=== PATIENT | male | born 1950 | race Caucasian/White ===

== ENCOUNTER 2022-07-16 09:42 | Inpatient (IN) | payer OTHER, MEDICARE, SELFPAY ==
--- NOTE | ~2022-07-16 | US_ITS ---
EXAMINATION: US VENOUS ULTRASOUND WITH DOPPLER LOWER EXTREMITY, BILATERAL CLINICAL INFORMATION: Shortness of breath, pain COMPARISON: None TECHNIQUE: Ultrasound of the deep veins is performed from the hip to the calf with compression sonography and color and pulse Doppler assessment. Spectral analysis with color-flow imaging is performed. FINDINGS: RIGHT: There is normal venous compression and respiratory variation and augmented flow. The visualized common femoral vein, superficial femoral vein, profunda femoral vein, popliteal vein, and the trifurcation region shows no evidence of deep venous thrombosis. There is no significant popliteal fossa cyst. LEFT: There is normal venous compression and respiratory variation and augmented flow. The visualized common femoral vein, superficial femoral vein, profunda femoral vein, popliteal vein, and the trifurcation region shows no evidence of deep venous thrombosis. There is no significant popliteal fossa cyst. If the patient's symptoms persist, followup ultrasound in 5 days 7 days might be of value to exclude proximal propagation from a non-visualized calf vein. US/US venous duplex LE BI IMPRESSION: No DVT demonstrated in the bilateral lower extremities.
--- NOTE | ~2022-07-16 | CT_ITS ---
EXAMINATION: CT ANGIOGRAM OF THE CHEST WITH AND WITHOUT CONTRAST (CT PULMONARY ANGIOGRAM FOR PE) CLINICAL INFORMATION: Reason for Exam hx of cancer and hip surgery c sudden onset sob COMPARISON: None TECHNIQUE: Prior to contrast administration, noncontrast localization images were obtained. Subsequently, multidetector volumetric imaging was performed from the thoracic inlet to below the diaphragms following the administration of 65 mL Omnipaque 350 intravenous contrast. No contrast reaction reported Sagittal, coronal, and MIP oblique sagittal reformatted images were obtained on the CT workstation, uploaded to PACS, and reviewed. This CT examination was performed using dose optimization techniques as appropriate, variously including the following: *Automated exposure control *Adjustment of mA and/or kV according to patient size (this includes techniques or standardized protocols for targeted exams where dose is matched to indication/reason for exam; i.e. extremities or head) *Use of iterative reconstruction technique Total exam dose-length product 515 mGy-cm FINDINGS: QUALITY OF STUDY/CONTRAST BOLUS: Satisfactory. PULMONARY ARTERIES: Exam is limited due to respiratory motion artifact. There is question of small subsegmental right lower lobe left upper lobe and left lower lobe pulmonary emboli. The pulmonary arteries are enlarged, main pulmonary artery measuring 4.1 cm. THORACIC AORTA: No aneurysm or dissection. LUNG: There is a 4 mm left upper lobe nodule axial image 208 series 7. PLEURA: There are moderate bilateral pleural effusions. MEDIASTINUM: Normal heart size. No pericardial effusion. No hilar or mediastinal lymphadenopathy. No evidence of septal bowing or right heart strain. CHEST WALL/AXILLA: No axillary or internal mammary lymphadenopathy. OSSEOUS STRUCTURES: There is a moderate lower thoracic vertebral body compression fracture, probably the T10 vertebral body. This appears heterogeneous in attenuation questionable for pathologic fracture appears recent. There are old left lateral rib fractures.. There are old left rib fractures. UPPER ABDOMEN: There are mild cirrhotic changes of the liver. There is question of large low-attenuation lesion in the right lobe of the liver versus artifact. There is a small subcentimeter low-attenuation lesion high in the dome of the liver axial image 39 series 5. There may be periportal lymphadenopathy. There is a small amount of ascites. The spleen is slightly enlarged. No reflux of contrast into the hepatic veins to suggest elevated right heart pressures. There is subcutaneous edema in the right lateral abdominal wall. CT/CT angio chest PE protocol IMPRESSION: Limited exam due to respiratory motion artifact. No large or central pulmonary embolism. Question small subsegmental bilateral lower lobe and left upper lobe pulmonary emboli. Enlarged pulmonary arteries. Moderate-sized bilateral pleural effusions. 4 mm left upper lobe pulmonary nodule. Moderate T10 vertebral body compression fracture, question representing a pathologic fracture. Multiple abdominal findings as described above. VTE: positive Findings were communicated to Kimberli Bonilla by telephone on 07/16/2022 at 1213 hours
--- NOTE | 2022-07-16 09:59 | ECG_ITS ---
Test Reason : SOB Blood Pressure : / mmHG Vent. Rate : 088 BPM Atrial Rate : 088 BPM P-R Int : 242 ms QRS Dur : 098 ms QT Int : 388 ms P-R-T Axes : 002 -33 064 degrees QTc Int : 469 ms Sinus rhythm with 1st degree A-V block Left axis deviation Abnormal ECG No previous ECGs available Referred By: Kimberli Bonilla Electronically Signed By:EVELYN MCCARTHY
[2022-07-16 10:11] VITALS: BP 109/51; BP 94/63; PULSE 120; PULSE 69; RESP 18; TEMP 37.1; O2SAT 97; BMI 29.8
--- NOTE | 2022-07-16 10:33 | ED_ITS ---
HPI - SOB/Dyspnea General Chief Complaint: General Medical Stated Complaint: SOB/Weakness Time Seen by Provider: 07/16/22 09:58 Source: patient Mode of arrival: ambulatory Limitations: no limitations History of Present Illness HPI Narrative: 71-year-old male who is a attempt resuscitation and intubated and ventilated although do not use Non-Invasive ventilation such as CPAP for code status who is presenting from [facility] who has a PMHx of hepatocellular carcinoma currently on Lenvima 10 mg daily, cirrhosis of liver, CHF recent ECHO on 06/14/22 was reported poor study with difficul to assess LV systolic dysfunction, HTN, SVT, type 2 diabetes, hx of elevated WBC, atrial fibrillation not on blood thinner's, thrombocytosis, herpetic rash on left buttocks, left femoral neck fracture s/p intramedullary nail 06/[address] Wade at [facility], urinary retention with Sotomayor catheter in place, current UTI/bacteremia who had a urine culture on 06/16/2022 which grew E coli and E. Faecalis resistant to Augmentin blood culture on 06/20/2022 and 06/21/2022 grew E coli s/p Zosyn 06/21-06/24, with susceptibilities intermittent to E coli in urine culture clinically improved in ED so likely be being covered appropriately and switch to levofloxacin 750 mg qd until 07/04 now s/p completed abx's presenting to the ER via EMS with complaints of sudden shortness of breath on awakening this morning. He denies any fevers, chills, dizziness, headaches, neck pain/stiffness, sore throat, cough, sputum production, chest pain, palpitations, paresthesias, nausea/vomiting, worsening abdominal pain as patient reports chronic right upper quadrant abdominal pain due to his hepatic cancer, back pain, flank pain, dysuria, hematuria, abnormal penile discharge, rashes, recent travel or sick contacts, lower extremity edema or calf tenderness or any other symptoms complaints or concerns at this time. MD elicited complaint: shortness of breath Pertinent past history: congestive heart failure and diabetes Onset (ago): minute(s) (Prior to arrival) Context: other (He woke up short of breath) Timing: constant Severity: mild Exacerbating factors: nothing Relieving factors: nothing Known history of: congestive heart failure, diabetes and other (See above) Associated symptoms: denies other symptoms Treatment prior to arrival: none Related Data Home oxygen amount: none Home Medications Medication Instructions Recorded Confirmed docusate sodium 100 mg capsule 100 mg PO BID 07/16/22 07/16/22 insulin glargine 100 unit/mL (3 25 unit subcut DAILY 07/16/22 07/16/22 mL) subcutaneous pen (Basaglar KwikPen U-100 Insulin) insulin lispro 100 unit/mL 1 sliding scale dose subcut 07/16/22 07/16/22 subcutaneous pen USEASDIRECTD ipratropium bromide 21 mcg (0.03 2 spray intranasal TID 07/16/22 07/16/22 %) nasal spray lactulose 10 gram/15 mL oral 15 ml PO DAILY 07/16/22 07/16/22 solution lenvatinib 10 mg/day (10 mg x 1) 10 mg PO DAILY 07/16/22 07/16/22 capsule (Lenvima) metoprolol tartrate 50 mg tablet 50 mg PO BID 07/16/22 07/16/22 oxycodone 5 mg tablet 5 mg PO Q6H 07/16/22 07/16/22 oxycodone 5 mg tablet 5 mg PO Q6H PRN Pain 07/16/22 07/16/22 Allergies Allergy/AdvReac Type Severity Reaction Status Date / Time No Known Allergies Allergy Verified 07/16/22 09:59 Review of Systems Review of Systems: Constitutional : No Weight loss, No Fever, No Chills, No Night Sweats, No Fatigue, No Malaise ENT/Mouth : No Hearing loss, No Ear Pain, No Nasal Congestion, No Sinus Pain, No Hoarseness, No sore throat, No Rhinorrhea, No Swallowing Difficulty Eyes: No Eye Pain, No Swelling, No Redness, No Foreign Body, No Discharge, No Vision Changes Cardiovascular : No Chest Pain, + SOB, No Dyspnea on Exertion, No Orthopnea, No Edema, No Palpitations Respiratory : No Cough, No Sputum, No Wheezing, No Smoke Exposure, No Dyspnea Gastrointestinal : No Nausea, No Vomiting, No Diarrhea, No Constipation, No abdominal Pain, No Hematochezia, No Melena Genitourinary : no irregular bleeding, No Dysuria, No Urinary Frequency, No Hematuria, No Urinary Incontinence, No Urgency, No Flank Pain, No Urinary Flow Changes, No Hesitancy Musculoskeletal : No joint pain, No Myalgias, No Joint Swelling Skin : No Skin Lesions, No rash Neuro : No Weakness, No Numbness, No Paresthesias, No Loss of Consciousness, No Dizziness, No Headache Psych : No Anxiety/Panic, No Depression, No SI/HI/AH/VH, No Social Issues, Heme/Lymph: No Bruising, No Bleeding,No Lymphadenopathy Endocrine : No Polyuria, No Polydipsia, No Temperature Intolerance Yes all other systems are reviewed and are negative [facility] Past Medical History Attestation statement: The following information was validated with the patient. Source: old records reviewed and nursing notes reviewed Medical History Hepatocellular carcinoma Hypoalbuminemia Type 2 diabetes mellitus Social History Social History Alcohol intake: never Patient Tobacco Use Status: Never used Tobacco Use of substances other than those prescribed or required for medical reasons: No Advance Directives: Yes Advance Directives Information Provided: No Advance Directives on File: No Physical Exam Vital Signs: Vital Signs: Last Vital Signs Temp 98.8 F 07/16/22 10:11 Pulse 75 07/16/22 14:14 Resp 18 07/16/22 14:14 BP 124/71 07/16/22 14:14 Pulse Ox 97 07/16/22 14:14 O2 Del Method 07/16/22 14:14 BMI result Body Mass Index 26.9 vital signs have been reviewed as normal and appeared to be correct. Blood pressure 94/63. Heart rate normal. Respiration rate normal. Temperature normal. Oxygen saturation normal. Appearance: Alert. Oriented X3. No acute distress. Head: Normal external exam. Normocephalic. Atraumatic. Eyes: PERRLA. EOMI. Conjunctiva and sclera normal. Eyelids normal. ENT: Pharynx normal. Uvula midline. Moist mucous membranes. No lesions/ulcerations or masses noted on the tongue. Normal voice. No trismus noted. No drooling noted. No muffled voice noted. Neck: Normal inspection. Neck supple. FROM. No adenopathy. Thyroid Normal. No tracheal deviation noted. No crepitus is noted. No meningeal signs. No neck mass noted. No signs of trauma noted. CVS: Normal heart rate and rhythm. Heart sound normal. Pulses normal throughout. No murmurs/rales/gallops. Respiratory: No respiratory distress. Painless inspiration. Breath sounds normal. No wheezes/rales/rhonchi noted. Chest nontender. No crepitus is noted. No accessory muscle usage noted or decreased air movement noted. No signs of trauma. Abdomen: Soft and chronic tenderness to upper quadrants. Nondistended. No guarding. No rigidity. Bowel sounds normal in all 4 quadrants. No distention noted. No organomegaly noted. No visible injury noted. No rebound tenderness. Negative Rovsing sign. Negative obturator's sign. Negative psoas sign. Negative Estes sign. Back: No CVA tenderness. Full range of motion noted. Nontender. No signs of trauma. Patient neuro intact bilaterally and distally on all 4 extremities. Patient's reflexes intact bilaterally and distally on all 4 extremities. No rashes/lesion/induration/fluctuance or signs of infection noted. Skin: Skin warm and dry. Normal skin color. Normal skin turgor. No rashes/lesions/lacerations noted. Extremities: No lower extremity edema. No calf tenderness is noted. Extremities exhibit normal range of motion and nontender. Neuro: Oriented X 3. No motor deficit. No sensory deficit. Reflexes normal. Normal steady gait. No focal neuro deficits noted. CN's II-XII intact bilaterally? Vascular: + radial pulses/+ 2 distal pedal pulses/+2 dorsalis pedis b/l. Normal cap refill. No cyanosis noted to upper extremity nails and lower extremity toes nails. 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 Wade at [facility], urinary retention with Sotomayor catheter in place, current UTI/bacteremia who had a urine culture on 06/16/2022 which grew E coli and E. Faecalis resistant to Augmentin blood culture on 06/20/2022 and 06/21/2022 grew E coli s/p Zosyn 06/21-06/24, switched to levofloxacin 750 mg qd until 07/04 now s/p completed abx's presenting to the ER via EMS with complaints of sudden shortness of breath on awakening this morning. Plan: Will obtain labs, blood cultures, lactic acid, COVID swab, EKG, venous duplex ultrasound of bilateral lower extremity, CTA of chest for PE. Provide a L of IV fluids, 1 g of Rocephin and re-evaluate. Reevaluation(s) Reevaluation #1: - patient with chronic leukocytosis of 46.5 which is similar with his labs on 07/07/2022 from the [facility] paperwork/records that he came with they report likely 2/2 necrotic tumors - patient mild baseline anemia which is improved when compared to prior with an H&H of 9.7/31.4. On 07/07/2022 his H&H was 8.8/30.0. - chronic elevated platelet count at 05:31 which is similar compared to prior - sodium 133. - random glucose 307 - alkaline phosphate 860 which is improved when compared to prior labs - BNP 1071 - total protein 5.3 - albumin 2.1 - lactic acid 3.8. - otherwise all other labs are within normal limits - patient negative for COVID - CTA of chest for PE reported limited exam due to respiratory motion artifact. No large or central pulmonary embolism. Although they are questioning small segmental bilateral lower lobes and left upper lobe pulmonary emboli. Enlarged pulmonary arteries. Moderate size bilateral pleural effusions. 4 mm left upper lobe pulmonary nodule. Moderate T10 vertebrae body compression fracture, questioning representing a pathologic fracture. Multiple abdominal findings as described. - venous duplex ultrasound of bilateral lower extremity negative for any DVTs. - I do not believe this is sepsis due to the patient's chronic leukocytosis secondary to his necrotic tumors. Also due to the patient's history of CHF and his BNP at 1071 will only give 250 mL of IV fluids due to poor LV systolic dysfunction do not want to fluid overload the patient which could cause harm. - plan will be to start on anticoagulation and admit at this time. Patient understands agrees with this plan. Time: 12:21 MDM - SOB/Dyspnea Medical Records Attestation: I reviewed the patient's medical records. Lab Data Attestation: I reviewed the patient's lab results. Result diagrams: 07/16/22 15:03 07/16/22 10:26 Labs: Lab Results 07/16/22 07/16/22 07/16/22 Range/Units 10:26 10:26 10:26 WBC 46.5 H* (4.8-10.8) X10*3/uL RBC 3.83 L (4.60-5.80) X10*6/uL Hgb 9.7 L (14.0-18.0) g/dl Hct 31.4 L (42.0-52.0) % MCV 82.0 (80.0-98.0) fL MCH 25.3 L (27.0-33.0) pg MCHC 30.9 L (31.0-36.0) g/dl RDW 15.1 (11.0-16.0) % Plt Count 531 H (160-400) X10*3/uL MPV 9.4 (9.4-12.4) fL Immature Gran % (Auto) 1.3 H (0.0-0.4) % Neut % (Auto) 89.7 H (45-73) % Lymph % (Auto) 4.0 L (20-40) % [place] % (Auto) 3.9 (2-11) % Eos % (Auto) 0.7 (0-4) % Baso % (Auto) 0.4 (0-2) % Lymph # (Auto) 1.9 (1.2-4.9) X10*3/uL [place] # (Auto) 1.8 H (0.1-1.2) X10*3/uL Eos # (Auto) 0.3 (0.0-0.4) X10*3/uL Baso # (Auto) 0.2 (0.0-0.2) X10*3/uL Abs Immat Gran (auto) 0.60 H (0.00-0.03) X10*3/uL Absolute Neuts (auto) 41.7 H (2.0-8.3) x10*3/uL Absolute Nucleated RBC 0.000 (0.0-0.012) X10*3/uL Nucleated RBC % (auto) 0.0 (0.0-0.2) /100WBC Smear Tech's Comments VERIFIED PT 14.7 H (10.0-13.1) SEC INR 1.3 H (0.9-1.1) APTT 29.5 (26.0-36.4) SEC Sodium 133 L (135-145) mmol/L Potassium 4.0 (3.3-5.1) mmol/L Chloride 99 (96-108) mmol/L Carbon Dioxide 21 L (22-29) mmol/L Anion Gap 17 (12-20) BUN 14 (9-16) mg/dL Creatinine 0.70 (0.5-1.4) mg/dL Estim Creat Clear Calc 121.8 Estimated GFR > 60 Random Glucose 307 H (60-115) mg/dL Lactic Acid (0.5-2.0) mmol/L Lactic Acid F/U @ 2Hr (0.5-2.0) mmol/L Calcium 9.2 (8.4-10.2) mg/dL Magnesium 1.9 (1.6-2.6) mg/dL Total Bilirubin 0.5 (0.0-1.0) mg/dL AST 15 (5-37) U/L ALT 16 (0-40) U/L Alkaline Phosphatase 860 H (39-117) U/L Troponin I High Sens (<3.5-35.0) ng/L B-Natriuretic Peptide (<100) pg/mL Total Protein 5.3 L (6.5-8.0) g/dL Albumin 2.1 L (3.5-5.0) g/dL Urine Color Urine Appearance Urine pH (5.0-9.0) Ur Specific [place] (1.005-1.025) Urine Protein (Neg-Trace) mg/dL Urine Glucose (UA) (Negative) mg/dL Urine Ketones (Negative) mg/dL Urine Blood (Negative) Urine Nitrite (Negative) Ur Leukocyte Esterase (Negative) Urine RBC (0-2) /HPF Urine WBC (0-5) /HPF Ur Squamous Epith Cells (0-2) /HPF Urine Bacteria (None Seen) Hyaline Casts (0-2) /LPF COVID-19 (CEDRIC) (Negative) COVID-19 Clin Com 07/16/22 07/16/22 07/16/22 Range/Units 10:26 10:26 10:26 WBC (4.8-10.8) X10*3/uL RBC (4.60-5.80) X10*6/uL Hgb (14.0-18.0) g/dl Hct (42.0-52.0) % MCV (80.0-98.0) fL MCH (27.0-33.0) pg MCHC (31.0-36.0) g/dl RDW (11.0-16.0) % Plt Count (160-400) X10*3/uL MPV (9.4-12.4) fL Immature Gran % (Auto) (0.0-0.4) % Neut % (Auto) (45-73) % Lymph % (Auto) (20-40) % [place] % (Auto) (2-11) % Eos % (Auto) (0-4) % Baso % (Auto) (0-2) % Lymph # (Auto) (1.2-4.9) X10*3/uL [place] # (Auto) (0.1-1.2) X10*3/uL Eos # (Auto) (0.0-0.4) X10*3/uL Baso # (Auto) (0.0-0.2) X10*3/uL Abs Immat Gran (auto) (0.00-0.03) X10*3/uL Absolute Neuts (auto) (2.0-8.3) x10*3/uL Absolute Nucleated RBC (0.0-0.012) X10*3/uL Nucleated RBC % (auto) (0.0-0.2) /100WBC Smear Tech's Comments PT (10.0-13.1) SEC INR (0.9-1.1) APTT (26.0-36.4) SEC Sodium (135-145) mmol/L Potassium (3.3-5.1) mmol/L Chloride (96-108) mmol/L Carbon Dioxide (22-29) mmol/L Anion Gap (12-20) BUN (9-16) mg/dL Creatinine (0.5-1.4) mg/dL Estim Creat Clear Calc Estimated GFR Random Glucose (60-115) mg/dL Lactic Acid 3.8 H* (0.5-2.0) mmol/L Lactic Acid F/U @ 2Hr (0.5-2.0) mmol/L Calcium (8.4-10.2) mg/dL Magnesium (1.6-2.6) mg/dL Total Bilirubin (0.0-1.0) mg/dL AST (5-37) U/L ALT (0-40) U/L Alkaline Phosphatase (39-117) U/L Troponin I High Sens 6.6 (<3.5-35.0) ng/L B-Natriuretic Peptide 1071 H (<100) pg/mL Total Protein (6.5-8.0) g/dL Albumin (3.5-5.0) g/dL Urine Color Urine Appearance Urine pH (5.0-9.0) Ur Specific [place] (1.005-1.025) Urine Protein (Neg-Trace) mg/dL Urine Glucose (UA) (Negative) mg/dL Urine Ketones (Negative) mg/dL Urine Blood (Negative) Urine Nitrite (Negative) Ur Leukocyte Esterase (Negative) Urine RBC (0-2) /HPF Urine WBC (0-5) /HPF Ur Squamous Epith Cells (0-2) /HPF Urine Bacteria (None Seen) Hyaline Casts (0-2) /LPF COVID-19 (CEDRIC) Negative (Negative) COVID-19 Clin Com See Note 07/16/22 07/16/22 07/16/22 Range/Units 13:18 13:18 15:03 WBC 41.9 H* (4.8-10.8) X10*3/uL RBC 3.71 L (4.60-5.80) X10*6/uL Hgb 9.4 L (14.0-18.0) g/dl Hct 30.8 L (42.0-52.0) % MCV 83.0 (80.0-98.0) fL MCH 25.3 L (27.0-33.0) pg MCHC 30.5 L (31.0-36.0) g/dl RDW 14.9 (11.0-16.0) % Plt Count 527 H (160-400) X10*3/uL MPV 9.5 (9.4-12.4) fL Immature Gran % (Auto) (0.0-0.4) % Neut % (Auto) (45-73) % Lymph % (Auto) (20-40) % [place] % (Auto) (2-11) % Eos % (Auto) (0-4) % Baso % (Auto) (0-2) % Lymph # (Auto) (1.2-4.9) X10*3/uL [place] # (Auto) (0.1-1.2) X10*3/uL Eos # (Auto) (0.0-0.4) X10*3/uL Baso # (Auto) (0.0-0.2) X10*3/uL Abs Immat Gran (auto) (0.00-0.03) X10*3/uL Absolute Neuts (auto) (2.0-8.3) x10*3/uL Absolute Nucleated RBC 0.000 (0.0-0.012) X10*3/uL Nucleated RBC % (auto) 0.0 (0.0-0.2) /100WBC Smear Tech's Comments PT (10.0-13.1) SEC INR (0.9-1.1) APTT (26.0-36.4) SEC Sodium (135-145) mmol/L Potassium (3.3-5.1) mmol/L Chloride (96-108) mmol/L Carbon Dioxide (22-29) mmol/L Anion Gap (12-20) BUN (9-16) mg/dL Creatinine (0.5-1.4) mg/dL Estim Creat Clear Calc Estimated GFR Random Glucose (60-115) mg/dL Lactic Acid (0.5-2.0) mmol/L Lactic Acid F/U @ 2Hr 2.7 H* (0.5-2.0) mmol/L Calcium (8.4-10.2) mg/dL Magnesium (1.6-2.6) mg/dL Total Bilirubin (0.0-1.0) mg/dL AST (5-37) U/L ALT (0-40) U/L Alkaline Phosphatase (39-117) U/L Troponin I High Sens (<3.5-35.0) ng/L B-Natriuretic Peptide (<100) pg/mL Total Protein (6.5-8.0) g/dL Albumin (3.5-5.0) g/dL Urine Color Yellow Urine Appearance Clear Urine pH 5.5 (5.0-9.0) Ur Specific [place] 1.010 (1.005-1.025) Urine Protein Negative (Neg-Trace) mg/dL Urine Glucose (UA) Negative (Negative) mg/dL Urine Ketones Negative (Negative) mg/dL Urine Blood Negative (Negative) Urine Nitrite Negative (Negative) Ur Leukocyte Esterase Trace H (Negative) Urine RBC 0-2 (0-2) /HPF Urine WBC 0-5 (0-5) /HPF Ur Squamous Epith Cells 0-2 (0-2) /HPF Urine Bacteria 1+ (None Seen) Hyaline Casts 0-2 (0-2) /LPF COVID-19 (CEDRIC) (Negative) COVID-19 Clin Com 07/16/22 Range/Units 15:03 WBC (4.8-10.8) X10*3/uL RBC (4.60-5.80) X10*6/uL Hgb (14.0-18.0) g/dl Hct (42.0-52.0) % MCV (80.0-98.0) fL MCH (27.0-33.0) pg MCHC (31.0-36.0) g/dl RDW (11.0-16.0) % Plt Count (160-400) X10*3/uL MPV (9.4-12.4) fL Immature Gran % (Auto) (0.0-0.4) % Neut % (Auto) (45-73) % Lymph % (Auto) (20-40) % [place] % (Auto) (2-11) % Eos % (Auto) (0-4) % Baso % (Auto) (0-2) % Lymph # (Auto) (1.2-4.9) X10*3/uL [place] # (Auto) (0.1-1.2) X10*3/uL Eos # (Auto) (0.0-0.4) X10*3/uL Baso # (Auto) (0.0-0.2) X10*3/uL Abs Immat Gran (auto) (0.00-0.03) X10*3/uL Absolute Neuts (auto) (2.0-8.3) x10*3/uL Absolute Nucleated RBC (0.0-0.012) X10*3/uL Nucleated RBC % (auto) (0.0-0.2) /100WBC Smear Tech's Comments PT Cancelled (10.0-13.1) SEC INR Cancelled (0.9-1.1) APTT (26.0-36.4) SEC Sodium (135-145) mmol/L Potassium (3.3-5.1) mmol/L Chloride (96-108) mmol/L Carbon Dioxide (22-29) mmol/L Anion Gap (12-20) BUN (9-16) mg/dL Creatinine (0.5-1.4) mg/dL Estim Creat Clear Calc Estimated GFR Random Glucose (60-115) mg/dL Lactic Acid (0.5-2.0) mmol/L Lactic Acid F/U @ 2Hr (0.5-2.0) mmol/L Calcium (8.4-10.2) mg/dL Magnesium (1.6-2.6) mg/dL Total Bilirubin (0.0-1.0) mg/dL AST (5-37) U/L ALT (0-40) U/L Alkaline Phosphatase (39-117) U/L Troponin I High Sens (<3.5-35.0) ng/L B-Natriuretic Peptide (<100) pg/mL Total Protein (6.5-8.0) g/dL Albumin (3.5-5.0) g/dL Urine Color Urine Appearance Urine pH (5.0-9.0) Ur Specific [place] (1.005-1.025) Urine Protein (Neg-Trace) mg/dL Urine Glucose (UA) (Negative) mg/dL Urine Ketones (Negative) mg/dL Urine Blood (Negative) Urine Nitrite (Negative) Ur Leukocyte Esterase (Negative) Urine RBC (0-2) /HPF Urine WBC (0-5) /HPF Ur Squamous Epith Cells (0-2) /HPF Urine Bacteria (None Seen) Hyaline Casts (0-2) /LPF COVID-19 (CEDRIC) (Negative) COVID-19 Clin Com Imaging Data CT of chest for PE: Attestation: I personally reviewed and interpreted this imaging study as follows: Radiologist's impression: FINDINGS: QUALITY OF STUDY/CONTRAST BOLUS: Satisfactory. PULMONARY ARTERIES: Exam is limited due to respiratory motion artifact. There is question of small subsegmental right lower lobe left upper lobe and left lower lobe pulmonary emboli. The pulmonary arteries are enlarged, main pulmonary artery measuring 4.1 cm. THORACIC AORTA: No aneurysm or dissection. LUNG: There is a 4 mm left upper lobe nodule axial image 208 series 7. PLEURA: There are moderate bilateral pleural effusions. MEDIASTINUM: Normal heart size.? No pericardial effusion.? No hilar or mediastinal lymphadenopathy.? No evidence of septal bowing or right heart strain. CHEST WALL/AXILLA: No axillary or internal mammary lymphadenopathy. OSSEOUS STRUCTURES: There is a moderate lower thoracic vertebral body compression fracture, probably the T10 vertebral body. This appears heterogeneous in attenuation questionable for pathologic fracture appears recent. There are old left lateral rib fractures.. There are old left rib fractures. UPPER ABDOMEN: There are mild cirrhotic changes of the liver. There is question of large low-attenuation lesion in the right lobe of the liver versus artifact. There is a small subcentimeter low-attenuation lesion high in the dome of the liver axial image 39 series 5. There may be periportal lymphadenopathy. There is a small amount of ascites. The spleen is slightly enlarged. No reflux of contrast into the hepatic veins to suggest elevated right heart pressures. There is subcutaneous edema in the right lateral abdominal wall. CT/CT angio chest PE protocol IMPRESSION: Limited exam due to respiratory motion artifact. No large or central pulmonary embolism. Question small subsegmental bilateral lower lobe and left upper lobe pulmonary emboli. Enlarged pulmonary arteries. Moderate-sized bilateral pleural effusions. 4 mm left upper lobe pulmonary nodule. Moderate T10 vertebral body compression fracture, question representing a pathologic fracture. Multiple abdominal findings as described above. ? VTE: positive ? Findings were communicated to Kimberli Bonilla by telephone on? 07/16/2022 at 1213 hours Venous to the ultrasound of bilateral lower extremity: Attestation: I personally reviewed and interpreted this imaging study as follows: Radiologist's impression: FINDINGS: RIGHT: There is normal venous compression and respiratory variation and augmented flow. The visualized common femoral vein, superficial femoral vein, profunda femoral vein, popliteal vein, and the trifurcation region shows no evidence of deep venous thrombosis. ? There is no significant popliteal fossa cyst. LEFT: There is normal venous compression and respiratory variation and augmented flow. The visualized common femoral vein, superficial femoral vein, profunda femoral vein, popliteal vein, and the trifurcation region shows no evidence of deep venous thrombosis. ? There is no significant popliteal fossa cyst. If the patient's symptoms persist, followup ultrasound in 5 days 7 days might be of value to exclude proximal propagation from a non-visualized calf vein. US/US venous duplex LE BI IMPRESSION: No DVT demonstrated in the bilateral lower extremities. ECG Data Attestation: I personally reviewed and interpreted this ECG as follows: ECG interpretation date: 07/16/22 ECG interpretation time: 10:03 Prior ECG tracings: not available for review Interpretation: Sinus rhythm with first-degree AV block with ventricular rate of 88 with a left axis deviation nonspecific ST abnormalities no acute ischemic change are noted. No prior EKGs to compare to in our system at this time. Discharge Plan Discharge Clinical Impression: Pulmonary embolism, History of leukocytosis, Anemia, Compression fracture of T10 vertebra, Acute exacerbation of CHF (congestive heart failure) Patient Disposition: Admitted As Inpatient
[2022-07-16 10:34] LABS: Basophils Absolute Auto 0.2 X10*3/uL (0.0-0.2); Basophils Percent Auto 0.4 % (0-2); Eosinophils Absolute Auto 0.3 X10*3/uL (0.0-0.4); Eosinophils Percent Auto 0.7 % (0-4); Hematocrit 31.4 % (42.0-52.0); Hemoglobin 9.7 g/dl (14.0-18.0); Imm Gran Pct Auto 1.3 % (0.0-0.4); Lymphocytes Absolute Auto 1.9 X10*3/uL (1.2-4.9); MANUAL DIFF FLAG SCAN; Mean Corpuscular HGB Conc 30.9 g/dl (31.0-36.0); Mean Corpuscular Hemoglobin 25.3 pg (27.0-33.0); Mean Platelet Volume 9.4 fL (9.4-12.4); Monocytes Absolute Auto 1.8 X10*3/uL (0.1-1.2); Monocytes Percent Auto 3.9 % (2-11); Neutrophils Absolute Auto 41.7 x10*3/uL (2.0-8.3); Neutrophils Percent Auto 89.7 % (45-73); Platelet Count 531 X10*3/uL (160-400); Red Blood Count 3.83 X10*6/uL (4.60-5.80); Red Cell Distribution Width 15.1 % (11.0-16.0); SCAN SMEAR FLAG 1
[2022-07-16 10:39] LABS: INTERNATIONAL NORM RATIO 1.3 (0.9-1.1); Prothrombin Time 14.7 SEC (10.0-13.1)
[2022-07-16 10:41] LABS: White Blood Count 46.5 X10*3/uL (4.8-10.8)
[2022-07-16 10:52] LABS: Albumin Level 2.1 g/dL (3.5-5.0); Anion Gap 17 (12-20); Bilirubin Total 0.5 mg/dL (0.0-1.0); Blood Urea Nitrogen 14 mg/dL (9-16); Calcium 9.2 mg/dL (8.4-10.2); Carbon Dioxide 21 mmol/L (22-29); Chloride 99 mmol/L (96-108); Creatinine Clr Calc Pharmacy 121.8; Estimated Glomerular Filt Rate > 60; Glucose Random 307 mg/dL (60-115); Magnesium 1.9 mg/dL (1.6-2.6); SLIDE REVIEW VERIFIED; Sodium 133 mmol/L (135-145); Total Protein 5.3 g/dL (6.5-8.0)
[2022-07-16 10:54] LABS: B Type Natriuretic Peptide 1071 pg/mL (<100); COVID-19 Test Negative (Negative); IDNOW Serial# 9DB6401D; Troponin-I High Sensitivity 6.6 ng/L (<3.5-35.0)
[2022-07-16 10:57] LABS: Lactic Acid 3.8 mmol/L (0.5-2.0)
[2022-07-16] MEDS: 0.9 % Sodium Chloride 1,000 ML 999 ML IVCONT (11:17)
[2022-07-16] MEDS: cefTRIAXone sodium 1 GM in 0.9 % Sodium Chloride 50 ML IV (11:17)
[2022-07-16 11:31] LABS: Alanine Aminotransferase 16 U/L (0-40); Alkaline Phosphatase 860 U/L (39-117); Aspartate Amino Transferase 15 U/L (5-37)
[2022-07-16] MEDS: iohexoL 350 MG/ML 100 ML INFUS..BTL IV (11:55)
[2022-07-16 12:32] LABS: Reflex Lactate? Lactic Acid Added
[2022-07-16 12:33] VITALS: BP 112/59; PULSE 79; RESP 16; O2SAT 97
[2022-07-16 12:33] LABS: Partial Thromboplastin Time 29.5 SEC (26.0-36.4)
--- NOTE | 2022-07-16 12:34 | PC.NURSE ---
Pt alert/oriented, states b/l foot pain. Pale/mildly jaundiced. SOB however no v\isible SOB on rest, breathing easy/unlabored. NSR on monitor. Speaking full sentences. Abd appears distended, but soft. BP stable. Only 250ml of NS bolus to be given per Kimberli CESPEDES
[2022-07-16 13:05] VITALS: BMI 26.9
[2022-07-16 13:30] LABS: Appearance Urine Clear; Color Urine Yellow; Glucose Urine UA Negative (Negative); Leukocyte Esterase Urine Trace (Negative); Nitrite Urine Negative (Negative); PH 5.5 (5.0-9.0); UMIC TRIGGER UACC YES; Urine Blood Negative (Negative); Urine Ketones Negative (Negative); Urine Protein Negative (Neg-Trace)
[2022-07-16 13:35] LABS: Bacteria Urine 1+ (None Seen); Hyaline Casts Urine 0-2 /LPF (0-2); RBC Urine 0-2 /HPF (0-2); Squamous Epithelial Cell Urine 0-2 /HPF (0-2); WBC Urine 0-5 /HPF (0-5)
[2022-07-16 13:40] LABS: ~Lactic Acid-LAB USE ONLY 2.7 mmol/L (0.5-2.0)
[2022-07-16 14:14] VITALS: BP 124/71; PULSE 75; RESP 18; O2SAT 97
[2022-07-16] MEDS: Heparin Sodium,Porcine 5,000 UNIT/ML VIAL 7200 UNIT IVPUSH (14:14)
[2022-07-16] MEDS: Heparin Sodium,Porcine/1/2NS 25,000 UNIT/250 ML IV.SOLN 12.61 UNIT IVCONT (14:15)
--- NOTE | 2022-07-16 14:17 | PM.IMHP ---
History of Present Illness Date of Service: 07/16/22 Chief Complaint: SOB A 71 years old male with PMH of hepatocellular carcinoma on oral chemo, cirrhosis, CHF, HTN, diabetes, chronic AFib not on AC, recent femoral neck fracture post intramedullary nail 818 at [facility], [place], urinary retention on chronic Sotomayor, recent E coli bacteremia finished antibiotics. Presented to the hospital from alf for sudden onset shortness of breath that started earlier this morning. The patient reports that he has been doing physical therapy as tolerated and yesterday was the 1st day he put weight on his left leg. He cannot tell if he was getting any blood thinners as injections or aspirin. Could not tell from the facility paper if he was on DVT prophylaxis. He denies any chest pain, palpitation, lightheadedness, dizziness, nausea or vomiting, change in bowel habit or urinary symptoms. In the emergency he was found to have chronic leukocytosis of 46,000. Has baseline anemia of hemoglobin 9.7. Chronic thrombocytosis. Elevated AFP of 860. Elevated BNP with low albumin. Tested negative for COVID. CTA of the chest showed evidence of small segmental bilateral lower lobes pulmonary emboli with moderate-sized pleural effusion. Lower extremities ultrasound negative for DVT. Patient will be admitted on heparin drip to monitor for any possible bleeding before changing him to oral anticoagulation. Review of Systems Review of Systems: No fever, chills report improving generalized weakness No chest pain, palpitation Sudden onset shortness of breath with no coughing No abdominal pain, nausea or vomiting No urinary symptoms No any rash or wounds PMFSH Medical History Hepatocellular carcinoma Hypoalbuminemia Type 2 diabetes mellitus Social History Alcohol intake: never Patient Tobacco Use Status: Never used Tobacco Use of substances other than those prescribed or required for medical reasons: No Advance Directives: Yes Advance Directives Information Provided: No Advance Directives on File: No Meds Allergies Allergy/AdvReac Type Severity Reaction Status Date / Time No Known Allergies Allergy Verified 07/16/22 09:59 Active Medications: Current Medications Heparin Sodium (Porcine) (Heparin Sodium,Porcine 5,000 Unit/Ml Vial) 3,600 unit 40 unit/kg (3600 unit) IVPUSH PROTOCOL BOLUS PRN; Protocol PRN Reason: 40 unit/kg - Heparin Protocol Heparin Sodium (Porcine) (Heparin Sodium,Porcine 5,000 Unit/Ml Vial) 7,200 unit 80 unit/kg (7200 unit) IVPUSH PROTOCOL BOLUS PRN; Protocol PRN Reason: 80 unit/kg - Heparin Protocol Heparin Sodium/Sodium Chloride (Heparin Sodium,Porcine/1/2ns) 25,000 unit in 250 mls @ 0 mls/hr IVCONT .Q0M ANGELIKA; Protocol Insulin Human Lispro (Insulin Lispro 100 Unit/Ml 3 Ml Vial) 0 unit SUBCUT QIDACHS ANGELIKA; Protocol Ondansetron HCl (Ondansetron Hcl 4 Mg/2 Ml Vial) 4 mg IVPUSH Q8H PRN PRN Reason: Nausea and Vomiting Pharmacy Consult (Consult Rx Perform Med Rec) 1 each MISCELLANE ONCE PRN PRN Reason: Consult order Sodium Chloride (0.9 % Sodium Chloride Flush 3 Ml Syringe) [facility] Medications Medication Instructions Recorded Confirmed Last Taken Type docusate sodium 100 mg capsule 100 mg PO BID 07/16/22 07/16/22 Unknown History insulin glargine 100 unit/mL (3 25 unit subcut DAILY 07/16/22 07/16/22 Unknown History mL) subcutaneous pen (Basaglar KwikPen U-100 Insulin) insulin lispro 100 unit/mL 1 sliding scale dose subcut 07/16/22 07/16/22 Unknown History subcutaneous pen USEASDIRECTD ipratropium bromide 21 mcg (0.03 2 spray intranasal TID 07/16/22 07/16/22 Unknown History %) nasal spray lactulose 10 gram/15 mL oral 15 ml PO DAILY 07/16/22 07/16/22 Unknown History solution lenvatinib 10 mg/day (10 mg x 1) 10 mg PO DAILY 07/16/22 07/16/22 Unknown History capsule (Lenvima) metoprolol tartrate 50 mg tablet 50 mg PO BID 07/16/22 07/16/22 Unknown History oxycodone 5 mg tablet 5 mg PO Q6H 07/16/22 07/16/22 Unknown History oxycodone 5 mg tablet 5 mg PO Q6H PRN Pain 07/16/22 07/16/22 Unknown History Physical Exam Vital Signs and Narrative: Vital Signs: Last Vital Signs Temp 98.8 F 07/16/22 10:11 Pulse 79 07/16/22 12:33 Resp 16 07/16/22 12:33 BP 112/59 L 07/16/22 12:33 Pulse Ox 97 07/16/22 12:33 O2 Del Method 07/16/22 12:33 BMI result Body Mass Index 26.9 Const: Other: Constitutional : Alert, interactive, not in distress Neck : Normal inspection, Supple Cardiovascular : RRR, no JVP, trace bilateral lower extremity edema Respiratory : fair bilateral air entry decreased at the bases, no crackles, wheezes or rhonchi Gastrointestinal: soft, lax, Normal bowel sounds, Non tender, mildly distended Skin : Warm, Dry Extremities: Left leg has dressing, no drainage noted Neurological : Alert & oriented x3, No focal deficit Results Labs CBC and Chem 7: 07/16/22 10:26 07/16/22 10:26 Labs: Laboratory Results - last 24 hr 07/16/22 07/16/22 07/16/22 10:26 10:26 10:26 MCV 82.0 MCH 25.3 L MCHC 30.9 L RDW 15.1 Plt Count 531 H MPV 9.4 Immature Gran % (Auto) 1.3 H Neut % (Auto) 89.7 H Lymph % (Auto) 4.0 L [place] % (Auto) 3.9 Eos % (Auto) 0.7 Baso % (Auto) 0.4 Lymph # (Auto) 1.9 [place] # (Auto) 1.8 H Eos # (Auto) 0.3 Baso # (Auto) 0.2 Abs Immat Gran (auto) 0.60 H Absolute Neuts (auto) 41.7 H Absolute Nucleated RBC 0.000 Nucleated RBC % (auto) 0.0 Smear Tech's Comments VERIFIED PT 14.7 H INR 1.3 H APTT 29.5 Anion Gap 17 Estim Creat Clear Calc 121.8 Estimated GFR > 60 Random Glucose 307 H Lactic Acid Lactic Acid F/U @ 2Hr Calcium 9.2 Magnesium 1.9 Total Bilirubin 0.5 AST 15 ALT 16 Alkaline Phosphatase 860 H B-Natriuretic Peptide Total Protein 5.3 L Albumin 2.1 L Urine Color Urine Appearance Urine pH Ur Specific [place] Urine Protein Urine Glucose (UA) Urine Ketones Urine Blood Urine Nitrite Ur Leukocyte Esterase Urine RBC Urine WBC Ur Squamous Epith Cells Urine Bacteria Hyaline Casts COVID-19 (CEDRIC) COVID-19 Clin Com 07/16/22 07/16/22 07/16/22 10:26 10:26 10:26 MCV MCH MCHC RDW Plt Count MPV Immature Gran % (Auto) Neut % (Auto) Lymph % (Auto) [place] % (Auto) Eos % (Auto) Baso % (Auto) Lymph # (Auto) [place] # (Auto) Eos # (Auto) Baso # (Auto) Abs Immat Gran (auto) Absolute Neuts (auto) Absolute Nucleated RBC Nucleated RBC % (auto) Smear Tech's Comments PT INR APTT Anion Gap Estim Creat Clear Calc Estimated GFR Random Glucose Lactic Acid 3.8 H* Lactic Acid F/U @ 2Hr Calcium Magnesium Total Bilirubin AST ALT Alkaline Phosphatase B-Natriuretic Peptide 1071 H Total Protein Albumin Urine Color Urine Appearance Urine pH Ur Specific [place] Urine Protein Urine Glucose (UA) Urine Ketones Urine Blood Urine Nitrite Ur Leukocyte Esterase Urine RBC Urine WBC Ur Squamous Epith Cells Urine Bacteria Hyaline Casts COVID-19 (CEDRIC) Negative COVID-19 Clin Com See Note 07/16/22 07/16/22 13:18 13:18 MCV MCH MCHC RDW Plt Count MPV Immature Gran % (Auto) Neut % (Auto) Lymph % (Auto) [place] % (Auto) Eos % (Auto) Baso % (Auto) Lymph # (Auto) [place] # (Auto) Eos # (Auto) Baso # (Auto) Abs Immat Gran (auto) Absolute Neuts (auto) Absolute Nucleated RBC Nucleated RBC % (auto) Smear Tech's Comments PT INR APTT Anion Gap Estim Creat Clear Calc Estimated GFR Random Glucose Lactic Acid Lactic Acid F/U @ 2Hr 2.7 H* Calcium Magnesium Total Bilirubin AST ALT Alkaline Phosphatase B-Natriuretic Peptide Total Protein Albumin Urine Color Yellow Urine Appearance Clear Urine pH 5.5 Ur Specific [place] 1.010 Urine Protein Negative Urine Glucose (UA) Negative Urine Ketones Negative Urine Blood Negative Urine Nitrite Negative Ur Leukocyte Esterase Trace H Urine RBC 0-2 Urine WBC 0-5 Ur Squamous Epith Cells 0-2 Urine Bacteria 1+ Hyaline Casts 0-2 COVID-19 (CEDRIC) COVID-19 Clin Com Imaging Radiologist's Impressions: Impressions Venous Duplex 07/16/22 11:04 IMPRESSION: No DVT demonstrated in the bilateral lower extremities. Chest CTA 07/16/22 11:52 IMPRESSION: Limited exam due to respiratory motion artifact. No large or central pulmonary embolism. Question small subsegmental bilateral lower lobe and left upper lobe pulmonary emboli. Enlarged pulmonary arteries. Moderate-sized bilateral pleural effusions. 4 mm left upper lobe pulmonary nodule. Moderate T10 vertebral body compression fracture, question representing a pathologic fracture. Multiple abdominal findings as described above. VTE: positive Findings were communicated to Kimberli Bonilla by telephone on 07/16/2022 at 1213 hours Assessment and Plan (1) Pulmonary embolism: Status: Acute (2) Lactic acidosis: Status: Acute Plan A 71 years old male with PMH of hepatocellular carcinoma on oral chemo, cirrhosis, CHF, HTN, diabetes, chronic AFib not on AC, recent femoral neck fracture post intramedullary nail 06/09 at [facility], [place], urinary retention on chronic Sotomayor, recent E coli bacteremia finished antibiotics. Presented to the hospital from alf for sudden onset shortness of breath that started earlier this morning. Acute pulmonary embolism Likely related to active cancer and recent major surgery Unclear if he was on DVT prophylaxis No evidence of heart strain clinically or on CT scan , on room air with O2 sat 97% Start full-dose heparin drip Monitor for any bleeding given history of liver cancer Elevated BNP with pleural effusion bilaterally Evidence of bilateral pleural effusion CT scan Likely secondary to hypoalbuminemia To check if echo is available from [facility] [place] [facility] stay To give a dose of Lasix and monitor Lactic acidosis Likely from liver cancer not due to sepsis Coagulopathy INR 1.3 from liver disease Hepatocellular cancer Continue home chemotherapy Hypoalbuminemia Secondary to liver cancer Chronic leukocytosis WBCs of 46, around baseline, no evidence of acute infection or sepsis Compression fracture T10 Noticed on CT scan P.r.n. oxycodone DVT PPX Heparin Quality Stroke Does the patient have a stroke diagnosis?: No VTE Prior VTE?: No VTE Risk Level:: Medical - moderate - high VTE Device Contraindication: Treatment Not Indicated VTE Drug Contraindication: N/A - Med Ordered
--- NOTE | 2022-07-16 15:17 | PHA.MEDREC ---
Pharmacy Consult ? Medication Reconciliation Pharmacy has completed the medication reconciliation.
--- NOTE | 2022-07-16 15:19 | PC.NURSE ---
assumed care of pt at 1500, pt a&ox3, vss, denies any pain at this time, heparin running at 14u/kg/her, next PTT due at 2014. no new orders at this time.
[2022-07-16 15:22] LABS: Reflex Lactate? 2 Y
[2022-07-16 15:37] LABS: Hematocrit 30.8 % (42.0-52.0); Hemoglobin 9.4 g/dl (14.0-18.0); Mean Corpuscular HGB Conc 30.5 g/dl (31.0-36.0); Mean Corpuscular Hemoglobin 25.3 pg (27.0-33.0); Mean Platelet Volume 9.5 fL (9.4-12.4); Platelet Count 527 X10*3/uL (160-400); Red Blood Count 3.71 X10*6/uL (4.60-5.80); Red Cell Distribution Width 14.9 % (11.0-16.0)
[2022-07-16 15:43] LABS: White Blood Count 41.9 X10*3/uL (4.8-10.8)
[2022-07-16 16:26] LABS: ~Lactic Acid-LAB USE ONLY 2.1 mmol/L (0.5-2.0)
[2022-07-16] MEDS: Furosemide 20 MG/2 ML VIAL IVPUSH (16:55)
[2022-07-16] MEDS: 0.9 % Sodium Chloride Flush 3 ML SYRINGE IVFLUSH (16:56)
[2022-07-16] MEDS: oxyCODONE HCl Immed Release 5 MG TABLET PO ×2 (18:33→21:25)
[2022-07-16 18:46] LABS: Glucose, Whole Blood 195 mg/dL (60-115)
[2022-07-16 21:04] LABS: PTT Heparin Drip 48.8 SEC (53-77.9)
[2022-07-16 21:19] LABS: Glucose, Whole Blood 320 mg/dL (60-115)
[2022-07-16] MEDS: Docusate Sodium 100 MG CAPSULE PO (21:25)
[2022-07-16] MEDS: Metoprolol Tartrate 50 MG TABLET PO (21:25)
[2022-07-16] MEDS: Insulin Lispro 100 UNIT/ML 3 ML VIAL SUBCUT (21:25)
[2022-07-16 21:40] VITALS: BP 102/72; PULSE 98; RESP 16; O2SAT 94
[2022-07-16] MEDS: Heparin Sodium,Porcine 5,000 UNIT/ML VIAL 3600 UNIT IVPUSH (22:04)
--- NOTE | 2022-07-16 22:06 | PC.NURSE ---
heparin dose adjusted to PTT, heparin running at 16u/kg/hr, next ptt due at 0400.
--- NOTE | 2022-07-16 22:08 | PC.NURSE ---
called pharmacy for 2099 atrovent
--- NOTE | 2022-07-16 22:39 | PC.NURSE ---
pt refused atrovent - reports that he only takes it in the Spring.
[2022-07-17 00:42] VITALS: BP 138/63; PULSE 73; RESP 17; TEMP 36.7; O2SAT 97
[2022-07-17 05:16] VITALS: BP 123/89; PULSE 81; RESP 14; TEMP 36.6; O2SAT 96
[2022-07-17 05:23] LABS: Hematocrit 31.2 % (42.0-52.0); Hemoglobin 9.6 g/dl (14.0-18.0); Mean Corpuscular HGB Conc 30.8 g/dl (31.0-36.0); Mean Corpuscular Hemoglobin 25.6 pg (27.0-33.0); Mean Corpuscular Volume 83.2 fL (80.0-98.0); Mean Platelet Volume 9.9 fL (9.4-12.4); Platelet Count 586 X10*3/uL (160-400); Red Blood Count 3.75 X10*6/uL (4.60-5.80)
[2022-07-17 05:28] LABS: INTERNATIONAL NORM RATIO 1.2 (0.9-1.1); Prothrombin Time 13.9 SEC (10.0-13.1)
[2022-07-17 05:34] LABS: White Blood Count 49.7 X10*3/uL (4.8-10.8)
[2022-07-17 05:38] LABS: Anion Gap 16 (12-20); Blood Urea Nitrogen 13 mg/dL (9-16); Calcium 9.3 mg/dL (8.4-10.2); Carbon Dioxide 27 mmol/L (22-29); Chloride 98 mmol/L (96-108); Creatinine Clr Calc Pharmacy 127.5; Estimated Glomerular Filt Rate > 60; Glucose Random 194 mg/dL (60-115); Sodium 137 mmol/L (135-145)
[2022-07-17] MEDS: Heparin Sodium,Porcine 5,000 UNIT/ML VIAL 3600 UNIT IVPUSH (07:11)
--- NOTE | 2022-07-17 07:17 | PC.NURSE ---
Adjusted heparin drip up to 18 units/kg/hr based on last PTT of 50.0. Pt. resting in bed.
[2022-07-17 07:19] LABS: Glucose, Whole Blood 220 mg/dL (60-115)
[2022-07-17] MEDS: Docusate Sodium 100 MG CAPSULE PO (07:48)
[2022-07-17] MEDS: Metoprolol Tartrate 50 MG TABLET PO (07:49)
[2022-07-17] MEDS: oxyCODONE HCl Immed Release 5 MG TABLET PO (07:49)
[2022-07-17] MEDS: Insulin Glargine,Hum.rec.anlog 100 UNIT/ML 10 ML VIAL 15 UNIT SUBCUT (07:49)
[2022-07-17] MEDS: Insulin Lispro 100 UNIT/ML 3 ML VIAL SUBCUT (07:50)
[2022-07-17 07:57] VITALS: BP 118/79; PULSE 91; RESP 25; O2SAT 95
[2022-07-17] MEDS: Omeprazole 40 MG CAPSULE.DR PO (08:57)
[2022-07-17 10:34] LABS: PTT Heparin Drip 67.3 SEC (53-77.9)
--- NOTE | 2022-07-17 10:57 | P.DS_ITS ---
DS: Providers Provider Date of Service: 07/17/22 Date of admission: 07/16/22 15:35 Primary care physician: Rhea Hutton MD DS: Diagnosis Discharge Diagnosis (1) Pulmonary embolism: Status: Acute (2) Lactic acidosis: Status: Acute (3) Hypoalbuminemia: Status: Acute (4) History of leukocytosis: Status: Acute (5) Elevated brain natriuretic peptide (BNP) level: Status: Acute (6) Acute exacerbation of CHF (congestive heart failure): Status: Acute DS: Summary Hospital Course Hospital Course: Admission note HPI Hospital course The patient was admitted to the hospital for evaluation of difficulty breathing. CTA of the chest was consistent with acute pulmonary embolism a with no evidence of heart strain on CT scan, EKG changes as O2 sat was 97% on room air. The patient was started on full-dose heparin drip with good response as no evidence of bleeding noticed and the dyspnea feeding improved. Will be discharged on full-dose Eliquis. Noted to have elevated BNP with pleural effusions bilaterally with history of congestive heart failure. Most recent echo done at [facility] reported as a poor study with difficult to assess LV dysfunction associated hypoalbuminemia. Treated with IV Lasix with good response. To be kept on p.o. Lasix at time of discharge and to be followed as outpatient for repeat echo if needed. Noted to have lactic acidosis which believed to be secondary to liver cancer blood due to sepsis. Has chronic leukocytosis which is around his baseline. Start Eliquis 10 mg twice daily for 1 week Then start Eliquis 5 mg twice Daily, you will likely needed for the rest of your life Start Lasix 20 mg daily, monitor weight to repeat BMP next week To follow-up with your oncologist as scheduled To follow-up with PCP for evaluation of heart failure and if repeat echo as needed. Time Spent with Patient Time attestation: Total time spent providing and/or coordinating discharge services: Discharge coordination time: Greater than 30 minutes Quality: Safe Use of Opioids Does Pt have an Active Cancer Diagnosis on the Problem List?: Yes Opioid Measure Date for [facility] Report: 06/17/22 Opioid Measure Time for [facility] Report: 12:04 Quality: Stroke Does the patient have a stroke diagnosis?: No Physical Exam Vital Signs: Vital Signs: Last Vital Signs Temp 97.9 F 07/17/22 05:16 Pulse 91 07/17/22 07:57 Resp 25 H 07/17/22 07:57 BP 118/79 07/17/22 07:57 Pulse Ox 95 07/17/22 07:57 O2 Del Method 07/17/22 07:57 BMI result Body Mass Index 26.9 Const: Other: Constitutional : Alert, interactive, not in distress Neck : Normal inspection, Supple Cardiovascular : RRR, no JVP, trace bilateral lower extremity edema Respiratory : fair bilateral air entry decreased at the bases, no crackles, wheezes or rhonchi, not others per the distress, on room air Gastrointestinal: soft, lax, Normal bowel sounds, Non tender, mildly distended Skin : Warm, Dry Extremities: Left leg has dressing, no drainage noted Neurological : Alert & oriented x3, No focal deficit DS: Data Data Completed and Pending Labs on day of discharge: Laboratory Results - last 24 hr 07/16/22 07/16/22 07/16/22 10:26 10:26 10:26 WBC RBC Hgb Hct MCV MCH MCHC RDW Plt Count MPV Immature Gran % (Auto) Neut % (Auto) Lymph % (Auto) Nance % (Auto) Eos % (Auto) Baso % (Auto) Lymph # (Auto) Nance # (Auto) Eos # (Auto) Baso # (Auto) Abs Immat Gran (auto) Absolute Neuts (auto) Absolute Nucleated RBC Nucleated RBC % (auto) PT INR APTT 29.5 aPTT Heparin Protocol Sodium Potassium Chloride Carbon Dioxide Anion Gap BUN Creatinine Estim Creat Clear Calc Estimated GFR POC Glucose Random Glucose Lactic Acid 3.8 H* Lactic Acid F/U @ 2Hr Lactic Acid F/U @ 4Hr Calcium AST 15 ALT 16 Alkaline Phosphatase 860 H Urine Color Urine Appearance Urine pH Ur Specific [place] Urine Protein Urine Glucose (UA) Urine Ketones Urine Blood Urine Nitrite Ur Leukocyte Esterase Urine RBC Urine WBC Ur Squamous Epith Cells Urine Bacteria Hyaline Casts 07/16/22 07/16/22 07/16/22 13:18 13:18 15:03 WBC 41.9 H* RBC 3.71 L Hgb 9.4 L Hct 30.8 L MCV 83.0 MCH 25.3 L MCHC 30.5 L RDW 14.9 Plt Count 527 H MPV 9.5 Immature Gran % (Auto) Neut % (Auto) Lymph % (Auto) Nance % (Auto) Eos % (Auto) Baso % (Auto) Lymph # (Auto) Nance # (Auto) Eos # (Auto) Baso # (Auto) Abs Immat Gran (auto) Absolute Neuts (auto) Absolute Nucleated RBC 0.000 Nucleated RBC % (auto) 0.0 PT INR APTT aPTT Heparin Protocol Sodium Potassium Chloride Carbon Dioxide Anion Gap BUN Creatinine Estim Creat Clear Calc Estimated GFR POC Glucose Random Glucose Lactic Acid Lactic Acid F/U @ 2Hr 2.7 H* Lactic Acid F/U @ 4Hr Calcium AST ALT Alkaline Phosphatase Urine Color Yellow Urine Appearance Clear Urine pH 5.5 Ur Specific [place] 1.010 Urine Protein Negative Urine Glucose (UA) Negative Urine Ketones Negative Urine Blood Negative Urine Nitrite Negative Ur Leukocyte Esterase Trace H Urine RBC 0-2 Urine WBC 0-5 Ur Squamous Epith Cells 0-2 Urine Bacteria 1+ Hyaline Casts 0-2 07/16/22 07/16/22 07/16/22 15:03 15:40 18:36 WBC RBC Hgb Hct MCV MCH MCHC RDW Plt Count MPV Immature Gran % (Auto) Neut % (Auto) Lymph % (Auto) Nance % (Auto) Eos % (Auto) Baso % (Auto) Lymph # (Auto) Nance # (Auto) Eos # (Auto) Baso # (Auto) Abs Immat Gran (auto) Absolute Neuts (auto) Absolute Nucleated RBC Nucleated RBC % (auto) PT Cancelled INR Cancelled APTT aPTT Heparin Protocol Sodium Potassium Chloride Carbon Dioxide Anion Gap BUN Creatinine Estim Creat Clear Calc Estimated GFR POC Glucose 195 H Random Glucose Lactic Acid Lactic Acid F/U @ 2Hr Lactic Acid F/U @ 4Hr 2.1 H* Calcium AST ALT Alkaline Phosphatase Urine Color Urine Appearance Urine pH Ur Specific [place] Urine Protein Urine Glucose (UA) Urine Ketones Urine Blood Urine Nitrite Ur Leukocyte Esterase Urine RBC Urine WBC Ur Squamous Epith Cells Urine Bacteria Hyaline Casts 07/16/22 07/16/22 07/17/22 20:28 20:52 04:02 WBC RBC Hgb Hct MCV MCH MCHC RDW Plt Count MPV Immature Gran % (Auto) Neut % (Auto) Lymph % (Auto) Nance % (Auto) Eos % (Auto) Baso % (Auto) Lymph # (Auto) Nance # (Auto) Eos # (Auto) Baso # (Auto) Abs Immat Gran (auto) Absolute Neuts (auto) Absolute Nucleated RBC Nucleated RBC % (auto) PT INR APTT aPTT Heparin Protocol 48.8 L 50.0 L Sodium Potassium Chloride Carbon Dioxide Anion Gap BUN Creatinine Estim Creat Clear Calc Estimated GFR POC Glucose 320 H Random Glucose Lactic Acid Lactic Acid F/U @ 2Hr Lactic Acid F/U @ 4Hr Calcium AST ALT Alkaline Phosphatase Urine Color Urine Appearance Urine pH Ur Specific [place] Urine Protein Urine Glucose (UA) Urine Ketones Urine Blood Urine Nitrite Ur Leukocyte Esterase Urine RBC Urine WBC Ur Squamous Epith Cells Urine Bacteria Hyaline Casts 07/17/22 07/17/22 07/17/22 04:02 04:02 04:02 WBC 49.7 H* RBC 3.75 L Hgb 9.6 L Hct 31.2 L MCV 83.2 MCH 25.6 L MCHC 30.8 L RDW 15.0 Plt Count 586 H MPV 9.9 Immature Gran % (Auto) Cancelled Neut % (Auto) Cancelled Lymph % (Auto) Cancelled Nance % (Auto) Cancelled Eos % (Auto) Cancelled Baso % (Auto) Cancelled Lymph # (Auto) Cancelled Nance # (Auto) Cancelled Eos # (Auto) Cancelled Baso # (Auto) Cancelled Abs Immat Gran (auto) Cancelled Absolute Neuts (auto) Cancelled Absolute Nucleated RBC 0.000 Nucleated RBC % (auto) 0.0 PT 13.9 H INR 1.2 H APTT aPTT Heparin Protocol Sodium 137 Potassium 4.0 Chloride 98 Carbon Dioxide 27 Anion Gap 16 BUN 13 Creatinine 0.60 Estim Creat Clear Calc 127.5 Estimated GFR > 60 POC Glucose Random Glucose 194 H D Lactic Acid Lactic Acid F/U @ 2Hr Lactic Acid F/U @ 4Hr Calcium 9.3 AST ALT Alkaline Phosphatase Urine Color Urine Appearance Urine pH Ur Specific [place] Urine Protein Urine Glucose (UA) Urine Ketones Urine Blood Urine Nitrite Ur Leukocyte Esterase Urine RBC Urine WBC Ur Squamous Epith Cells Urine Bacteria Hyaline Casts 07/17/22 07/17/22 07:15 10:06 WBC RBC Hgb Hct MCV MCH MCHC RDW Plt Count MPV Immature Gran % (Auto) Neut % (Auto) Lymph % (Auto) Nance % (Auto) Eos % (Auto) Baso % (Auto) Lymph # (Auto) Nance # (Auto) Eos # (Auto) Baso # (Auto) Abs Immat Gran (auto) Absolute Neuts (auto) Absolute Nucleated RBC Nucleated RBC % (auto) PT INR APTT aPTT Heparin Protocol 67.3 D Sodium Potassium Chloride Carbon Dioxide Anion Gap BUN Creatinine Estim Creat Clear Calc Estimated GFR POC Glucose 220 H Random Glucose Lactic Acid Lactic Acid F/U @ 2Hr Lactic Acid F/U @ 4Hr Calcium AST ALT Alkaline Phosphatase Urine Color Urine Appearance Urine pH Ur Specific [place] Urine Protein Urine Glucose (UA) Urine Ketones Urine Blood Urine Nitrite Ur Leukocyte Esterase Urine RBC Urine WBC Ur Squamous Epith Cells Urine Bacteria Hyaline Casts Imaging CT scan - chest: Radiologist's impression: ITS Impressions Venous Duplex 07/16/22 11:04 IMPRESSION: No DVT demonstrated in the bilateral lower extremities. Chest CTA 07/16/22 11:52 IMPRESSION: Limited exam due to respiratory motion artifact. No large or central pulmonary embolism. Question small subsegmental bilateral lower lobe and left upper lobe pulmonary emboli. Enlarged pulmonary arteries. Moderate-sized bilateral pleural effusions. 4 mm left upper lobe pulmonary nodule. Moderate T10 vertebral body compression fracture, question representing a pathologic fracture. Multiple abdominal findings as described above. VTE: positive Findings were communicated to Kimberli Bonilla by telephone on 07/16/2022 at 1213 hours Discharge Plan Discharge Patient Disposition: er SNF Discharge Diagnosis: Acute pulmonary embolism Referrals: Rhea Hutton MD [Primary Care Provider] - 1 Week Discharge Medications: New omeprazole 40 mg Capsule,Delayed Release(Dr/Ec) 40 mg PO DAILY@0630 30 Days Qty: 30 0RF Eliquis 5 mg Tablet 10 mg PO BID 7 Days Qty: 28 0RF Eliquis 5 mg tablet 5 mg PO BID Qty: 60 0RF Rx Instructions: To start 07-24-2022 furosemide 20 mg tablet 20 mg PO DAILY Qty: 30 0RF Continued metoprolol tartrate 50 mg Tablet 50 mg PO BID docusate sodium 100 mg Capsule 100 mg PO BID ipratropium bromide 21 mcg (0.03 %) [place],Non-Aerosol 2 spray INTRANASAL TID Rx Instructions: administer into each nostril oxycodone 5 mg Tablet 5 mg PO Q6H oxycodone 5 mg Tablet 5 mg PO Q6H PRN (Reason: Pain) insulin lispro 100 unit/mL Insulin Pen 1 sliding scale dose SUBCUT USEASDIRECTD Rx Instructions: 100-149: 4 U 150-199: 7 U 200-249: 10 U 250-299: 13 U 300-349: 16 U lactulose 10 gram/15 mL Solution 15 ml PO DAILY insulin glargine [Basaglar KwikPen U-100 Insulin] 100 unit/mL (3 mL) Insulin Pen 25 unit SUBCUT DAILY Lenvima 10 mg/day (10 mg x 1) Capsule 10 mg PO DAILY Discharge Orders: Discharge Order (Routine); Ordered 07/17/22 Ordered By: Yaima Middleton Diet: Low salt diet Activity on Discharge: As tolerated Stand Alone Forms: Patient Portal Discharge page Other Ambulatory Orders: Basic Metabolic Panel (Routine) Timeframe: 4 Days Facility: [facility] - Location: Laboratory Ordered By: Yaima Middleton Care Plan Goals: Read below Health Concerns: Read below Plan of Treatment: Read below Assessment: You were admitted to the hospital for evaluation of shortness of breath. CTA found evidence of clot to your lung. Tolerated IV heparin treatment with no evidence of bleeding. Start Eliquis 10 mg twice daily for 1 week Then start Eliquis 5 mg twice Daily, you will likely needed for the rest of your life Start Lasix 20 mg daily, monitor your weight at facility To follow-up with your oncologist as scheduled to repeat blood test next week
[2022-07-17 11:56] VITALS: BP 139/67; PULSE 68; RESP 16; TEMP 36.5; O2SAT 97
[2022-07-17] MEDS: Apixaban 5 MG TABLET 10 MG PO (12:07)
--- NOTE | 2022-07-17 12:08 | PC.NURSE ---
Addendum entered by Asael Lovell 07/17/22 12:15: Pt was given apixaban by order. Original Note: RN received report from nurse at ER, Pt came in from the ER a/o x4. Pt had running heparin drip at 18 and it was stop at 12:00p.m. by provider order. Pt was administer meds by doc order. Pt lung sounds are clear, POC 152, V/S are stable, buck is patent. Pt is on the telemetry and it shows NSR. Will continue to monitor.
[2022-07-17 12:15] LABS: Glucose, Whole Blood 152 mg/dL (60-115)
--- NOTE | 2022-07-17 12:15 | MHC.CM.PN ---
D/C order return to SNF. [facility] notified; D/C Summary sent to them, transport set for 1pm today, [facility] notified, ED Over notified.
[2022-07-17] MEDS: Furosemide 20 MG/2 ML VIAL IVPUSH (13:17)
--- NOTE | 2022-07-17 13:33 | PC.NURSE ---
RN called the facility [facility] nurse Maria Victoria to give her report. Pt has d/c, meds were administered as order and has stable V/S.
== END 2022-07-17 13:39 | disposition skilled nursing facility (03) | DRG 176 ==
LOC: HO.ED 12:41 → HO.EDOVER 14:20
PROVIDERS: Physician Assistant Medical; Admitting Provider Student in an Organized Health Care Education/Training Program; Emergency Provider Emergency Medicine; PCP Family Medicine Geriatric Medicine; Visit Provider Student in an Organized Health Care Education/Training Program
DX: I26.99 Other pulmonary embolism without acute cor pulmonale (principal); C22.0 Liver cell carcinoma; I48.20 Chronic atrial fibrillation, unspecified; E87.2 Acidosis; D68.4 Acquired coagulation factor deficiency; M48.54XA Collapsed vertebra, not elsewhere classified, thoracic region, initial encounter for fracture; I11.0 Hypertensive heart disease with heart failure; E88.09 Other disorders of plasma-protein metabolism, not elsewhere classified; D72.829 Elevated white blood cell count, unspecified; K74.60 Unspecified cirrhosis of liver; E11.9 Type 2 diabetes mellitus without complications; Z20.822 Contact with and (suspected) exposure to COVID-19; Z79.4 Long term (current) use of insulin; Z79.899 Other long term (current) drug therapy
CPT/HCPCS: 36415; 71275; 80048; 80053; 81001; 82947; 83605; 83735; 83880; 84484; 85025; 85027; 85610; 85730; 87040; 87635; 93005; 93970; 96361; 96365; 96375; 99285; J0696; J1940; Q9967